=== PATIENT | female | born 1990 | race Two or more races ===

== ENCOUNTER 2020-05-18 14:58 | Observation (INO) | payer MEDICAID, OTHER ==
[~2020-05-18] VITALS: Ht 157.5 cm; Wt 72.6 kg
[2020-05-18] MEDS ORDERED: PNV1TABL76 MT (16:30)
== END 2020-05-18 16:35 | disposition home or self-care (01) ==
LOC: 8 EST LDRP 14:58
PROVIDERS: ADMIT Obstetrics & Gynecology; ATTEND Obstetrics & Gynecology
DX: O9A.213 Injury, poisoning and certain other consequences of external causes complicating pregnancy, third trimester (principal); S89.80XA Other specified injuries of unspecified lower leg, initial encounter; Z3A.33 33 weeks gestation of pregnancy; W18.39XA Other fall on same level, initial encounter; Y93.89 Activity, other specified; Y92.89 Other specified places as the place of occurrence of the external cause
CPT/HCPCS: 99281; G0378